=== PATIENT | male | born 1975 | race Caucasian/White ===

== ENCOUNTER 2018-01-21 13:42 | Emergency (ER) | payer BC ==
[2018-01-21] MEDS ORDERED: LORazepam 2 MG/ML INJ IVP ONE (13:47)
--- NOTE | 2018-01-21 13:47 | EDPHY ---
H & P Time Seen by Provider: 01/21/18 13:42 HPI/ROS: CHIEF COMPLAINT: Nausea, anxiety HISTORY OF PRESENT ILLNESS: The patient presents the ED via EMS with complaints of nausea and anxiety. The patient has a history of anxiety. He is taking Effexor for this condition. The patient the denies chest pain. The patient denies asymmetric calf pain or swelling. The patient denies vomiting. He has no complaints of diarrhea or hematemesis. The patient does attribute increasing anxiety to stress at work. The patient does have a history of a TBI and reportedly was hospitalized for most of 2015 by his report. REVIEW OF SYSTEMS: A comprehensive 10 point review of systems is otherwise negative aside from elements mentioned in the history of present illness. Source: Patient Exam Limitations: No limitations - Medical/Surgical History PMH: Past medical history: TBI, anxiety - Family History Significant Family History: No pertinent family hx - Social History Smoking Status: Never smoked - Physical Exam Exam: General Appearance: Alert, anxious, no acute distress Eyes: Pupils equal and round no pallor or injection ENT, Mouth: Mucous membranes moist Respiratory: There are no retractions, lungs are clear to auscultation Cardiovascular: Regular rate and rhythm Gastrointestinal: Soft, nontender, normal bowel sounds Neurological: 5/5 strength all 4 extremities Skin: Warm and dry, no rashes Musculoskeletal: Neck is supple nontender Extremities: symmetrical, full range of motion Constitutional: Initial Vital Signs Temperature (C) 37 C 01/21/18 13:50 Heart Rate 67 01/21/18 13:50 Respiratory Rate 16 01/21/18 13:50 Blood Pressure 143/94 H 01/21/18 13:50 O2 Sat (%) 97 01/21/18 13:50 O2 Delivery Mode Room Air Allergies/Adverse Reactions: No Known Allergies Allergy (Unverified 02/08/12 12:35) Medical Decision Making ED Course/Re-evaluation: The patient presents to the ED with a mild anxiety reaction. He is in no acute distress. The patient was given 1 mg of Ativan in the emergency department. The patient's laboratory studies demonstrate no significant abnormality. He may have some mild degree of dehydration. I re-evaluated the patient at 3:11 pm. He continues to be in no acute distress. Differential Diagnosis: Differential diagnosis considered includes dehydration, metabolic abnormality, anxiety, pulmonary embolism, arrhythmia - Data Points Laboratory Results: Laboratory Results 01/21/18 13:45 01/21/18 13:45 01/21/18 01/21/18 13:45 13:45 WBC 9.52 10^3/uL H 10^3/uL (3.80-9.50) RBC 5.92 10^6/uL 10^6/uL (4.40-6.38) Hgb 18.0 g/dL H g/dL (13.7-17.5) Hct 50.6 % % (40.0-51.0) MCV 85.5 fL fL (81.5-99.8) MCH 30.4 pg pg (27.9-34.1) MCHC 35.6 g/dL g/dL (32.4-36.7) RDW 12.5 % % (11.5-15.2) Plt Count 251 10^3/uL 10^3/uL (150-400) MPV 10.0 fL fL (8.7-11.7) Neut % (Auto) 83.6 % H % (39.3-74.2) Lymph % (Auto) 9.6 % L % (15.0-45.0) [place] % (Auto) 5.5 % % (4.5-13.0) Eos % (Auto) 0.4 % L % (0.6-7.6) Baso % (Auto) 0.4 % % (0.3-1.7) Nucleat RBC Rel Count 0.0 % % (0.0-0.2) Absolute Neuts (auto) 7.96 10^3/uL H 10^3/uL (1.70-6.50) Absolute Lymphs (auto) 0.91 10^3/uL L 10^3/uL (1.00-3.00) Absolute Monos (auto) 0.52 10^3/uL 10^3/uL (0.30-0.80) Absolute Eos (auto) 0.04 10^3/uL 10^3/uL (0.03-0.40) Absolute Basos (auto) 0.04 10^3/uL 10^3/uL (0.02-0.10) Absolute Nucleated RBC 0.00 10^3/uL 10^3/uL (0-0.01) Immature Gran % 0.5 % % (0.0-1.1) Immature Gran # 0.05 10^3/uL 10^3/uL (0.00-0.10) Sodium 139 mEq/L mEq/L (135-145) Potassium 5.2 mEq/L H mEq/L (3.3-5.0) Chloride 102 mEq/L mEq/L (97-110) Carbon Dioxide 18 mEq/l L mEq/l (22-31) Anion Gap 19 mEq/L H mEq/L (8-16) BUN 19 mg/dL mg/dL (7-23) Creatinine 0.9 mg/dL mg/dL (0.7-1.3) Estimated GFR > 60 Glucose 132 mg/dL H mg/dL (70-100) Calcium 9.5 mg/dL mg/dL (8.5-10.4) Total Bilirubin 1.4 mg/dL mg/dL (0.1-1.4) Conjugated Bilirubin 0.6 mg/dL H mg/dL (0.0-0.5) Unconjugated Bilirubin 0.8 mg/dL mg/dL (0.0-1.1) AST 42 IU/L IU/L (17-59) ALT 55 IU/L IU/L (21-72) Alkaline Phosphatase 67 IU/L IU/L (38-126) Total Protein 8.4 g/dL H g/dL (6.3-8.2) Albumin 4.9 g/dL g/dL (3.5-5.0) Lipase 51 IU/L IU/L (23-300) Medications Given: Discontinued Medications Lorazepam (Ativan Injection) 1 mg IVP EDNOW ONE Stop: 01/21/18 13:48 Last Admin: 01/21/18 14:30 Dose: Not Given Lorazepam (Ativan) 1 mg PO EDNOW ONE Stop: 01/21/18 14:31 Last Admin: 01/21/18 14:32 Dose: 1 mg Departure - Departure Disposition: Home, Routine, Self-Care Clinical Impression: Anxiety, Nausea Condition: Good Instructions: Anxiety (ED) Additional Instructions: 1. Please follow up with your primary care provider as scheduled. Referrals: Patient,NotPresent [Unknown] - As per Instructions
[2018-01-21 13:54] LABS: PLATELET COUNT 251 10^3/uL (150-400)
[2018-01-21] MEDS ORDERED: LORazepam 1 MG TAB ONE (14:29)
[2018-01-21] MEDS ORDERED: LORazepam 1 MG TAB PO ONE (14:30)
[2018-01-21 15:35] VITALS: BP 138/90
== END 2018-01-21 15:30 | disposition home or self-care (01) ==
LOC: EDUNIT#
DX: F41.9 Anxiety disorder, unspecified (principal); R11.0 Nausea